=== PATIENT | female | born 1970 | race Caucasian/White ===

== ENCOUNTER 2016-11-10 18:02 | Emergency (ER) | payer OTHER ==
[~2016-11-10] VITALS: Ht 170.2 cm; Wt 77.0 kg
[~2016-11-10 18:02] MED LIST: ALBU1AER9 INH; FURO-85 PO; LORA-741 PO; PROC1TAB5 PO; ZOLP10TA PO
[2016-11-10 18:14] VITALS: TEMP 37.5; Ht 170.2 cm; Wt 77.0 kg
[2016-11-10] MEDS ORDERED: LAMO150T32 PO (19:17)
[2016-11-10] MEDS ORDERED: NRN600 PO (19:17)
[2016-11-10] MEDS ORDERED: ONDANSETRON INJ 2 MG/ML 2 ML VIAL IV STA (20:15)
[2016-11-10] MEDS ORDERED: MoRPHine SULFATE 4 MG/ML 1 ML CARP\\VIAL IV STA (20:15)
--- NOTE | 2016-11-10 20:15 | EMERGENCY ROOM VISIT NOTE ---
History Report prepared by Shyam: Milton Quispe Under the Supervision of: Dr. Dillon Stack M.D. First contact with patient: 20:01 Chief Complaint: FALL Stated Complaint: FELL LAST NIGHT,RT ARM & RT LEG/MID BACK PAIN History of Present Illness The patient is a 46 year old female who presents to the Emergency Room with complaints of an acute fall that occurred two nights ago. The patient slipped on a rug in her apartment. She blacked out after the fall and cannot remember going to bed. The patient now complains of right forearm, upper back, and right hip pain. The patient cannot remember specifically hitting her head but believes that she did because she blacked out. The patient is able to ambulate with difficulty. She is not taking anything for pain. The patient has been incontinent of urine multiple times since the fall, which is new for her. She also has numbness radiating from her right buttocks down her right leg which is new.The patient has a history of herniated discs. She is not on blood thinners. Source of History: patient Onset: two nights ago Position: other (global) Quality: other (fall) Timing: other (acute) Associated Symptoms: + back pain, + numbness, + urinary symptoms Review of Systems See HPI for pertinent positives & negatives. A total of 10 systems reviewed and were otherwise negative. Past Medical & Surgical Medical Problems: (1) ACUTE PANCREATITIS (2) Asthma (3) Bariatric Surgery Status (4) Benign hypertension (5) Bowel obstruction (6) Cholecystectomy (7) Disc Degeneration Nos (8) Hysterectomy (9) Intussusception (10) IRON DEFIC ANEMIA NOS (11) Kidney stone (12) MIGRAINE UNSPECIFIED W/O INTRACT MGRN W/O STATUS MIGRAINOSUS (13) Oophorectomy (14) Poison-Antipsychotic Nec (15) Recurrent mouth ulcers (16) Severe recurrent major depression without psychotic features Old medical records were reviewed. Nurse's notes were reviewed and I agree with. Family History FHx: diabetes FHx: gallbladder disease FHx: heart disease FHx: hypertension FHx: kidney disease/stones FHx: seizures Social History Smoking Status: Never Smoker Alcohol Use: none Drug Use: none Marital Status: Housing Status: lives with significant other Occupation Status: disabled Current/Historical Medications Scheduled Wbfcqqy-Jtagjnfetvadq-Fhtogjys (Excedrin Extra Strength), 3 TABS PO DAILY Brexpiprazole (Rexulti), 2 TABS PO DAILY Furosemide (Lasix), 20 MG PO DAILY Gabapentin (Gabapentin), 600 MG PO TID Lamotrigine (Lamictal), 150 MG PO BID Lorazepam (Ativan), 1 MG PO DAILY Morphine Cont Rel (Ms Contin), 15 MG PO Q12 Zolpidem Tartrate (Ambien), 10 MG PO HS Scheduled PRN Hydrocodone/Acetaminophen 7.5MG/325MG (Gray 7.5MG/325MG), 1 TAB PO QID PRN for Pain Allergies Coded Allergies: Ketorolac Tromethamine (Verified Allergy, Intermediate, pt states it makes her itchy, 04/15/16) Tramadol (Verified Allergy, Mild, HIVES ITCHING, 04/15/16) Valproic Acid (Unverified Allergy, Unknown, hives , 04/15/16) Acetaminophen (Unverified Adverse Reaction, Severe, GI UPSET, 04/15/16) Butalbital (Verified Adverse Reaction, Intermediate, UNSTEADY "DRUNK FEELING", 04/15/16) Diclofenac (Verified Adverse Reaction, Intermediate, RECTAL BLEEDING, 04/15) Venlafaxine (Verified Adverse Reaction, Mild, VOMITING, JITTERS, 04/15/16) Aspartame (Unverified Adverse Reaction, Unknown, N/V, 04/15/16) Physical Exam Vital Signs Date Time Temp Pulse Resp B/P Pulse Ox O2 Delivery O2 Flow Rate FiO2 11/11/16 00:22 76 16 127/63 96 11/10/16 23:29 73 16 122/76 98 Room Air 11/10/16 22:05 73 18 130/69 95 Room Air 11/10/16 20:28 74 20 133/56 95 Room Air 11/10/16 18:14 37.5 112 18 125/79 95 Room Air Physical Exam General: Non ill appearing middle aged female in no acute distress. HEENT: Normal cephalic atraumatic. Pupils are equal round and reactive to light. Extraocular movements are intact. Oropharynx is pink with moist mucous membranes. No swelling of the mouth lips or tongue. Neck: Supple with a midline trachea. No meningeal signs or stiffness, no JVD or bruits. No Stridor. Chest: Clear to auscultation bilaterally. No wheezes or rhonchi. No increased work of breathing. Heart: regular rate and rhythm. Back: Upper lumbar/lower thoracic tenderness, no external signs of trauma. Abdomen: Soft nontender, nondistended without rebound guarding or rigidity. Extremities: Minimal swelling of the right forearm. Lower extremities have symmetrical intact reflexes, normal motor or sensation. Spine/Back. Non tender to palpation. No CVA tenderness Skin: Good turgor without rashes. Neurologic exam: Cranial nerves two through 12 are intact. Motor and sensation are intact and symmetrical throughout. He hasn't a tach sensation light touch in the legs and buttocks. She has brisk reflexes in the Achilles and patellar reflexes bilaterally Medical Decision & Procedures ER Provider Diagnostic Interpretation: Radiology results as stated below per my review and radiologist interpretation: RIGHT FOREARM 2 VIEWS ROUTINE CLINICAL HISTORY: Trauma. Right forearm pain. COMPARISON: Right elbow radiograph April 22, 2013. FINDINGS: No acute fracture of the right radius or ulna is identified. There is no right elbow joint effusion. IMPRESSION: No acute fracture of the right radius or ulna. Electronically signed by: Zane Santamaria M.D. 11/10/2016 9:31 PM Dictated Date/Time: 11/10/2016 9:[address] OF THE ABDOMEN AND PELVIS WITH CONTRAST CLINICAL HISTORY: Fall. COMPARISON STUDY: CT of the abdomen and pelvis April 15, 2016. TECHNIQUE: Following IV administration of 93 mL of Optiray-320, axial images of the abdomen and pelvis were obtained from the lung bases to the proximal femurs. Images were reviewed in the axial, sagittal, and coronal planes. IV contrast was administered without complication. FINDINGS: No hemoperitoneum or pneumoperitoneum is present. Visualized portions of the lower chest demonstrate several healed bilateral lower rib fractures. There are findings consistent with gastric bypass and cholecystectomy. Biliary ductal dilatation is unchanged. There is no evidence of traumatic injury to the liver, spleen, adrenal glands, kidneys or pancreas. A few subcentimeter lesions within the upper pole of the right kidney are too small to characterize but are unchanged and likely reflect cysts. There is no hydronephrosis. The caliber and wall thickness of small and large bowel are normal. There is no free fluid. No acute pelvic or lumbar spine fractures identified. There is apparent slight asymmetric infiltration within the left posterior hemipelvis, including the left sciatic foramen. No adjacent fracture is identified. There is no hematoma. IMPRESSION: 1. No evidence of traumatic injury to the solid abdominal viscera. 2. Slight asymmetric infiltration within the left posterior hemipelvis, including the left sciatic foramen. While nonspecific, this may be posttraumatic. No large hematoma. No adjacent fracture identified. CT OF THE HEAD WITHOUT CONTRAST CLINICAL HISTORY: Trauma. COMPARISON STUDY: Head CT March 10, 2016. CT DOSE: 1127.24 mGy.cm TECHNIQUE: Helical axial images of the head were obtained without IV contrast. Automated exposure control was utilized for the study. FINDINGS: No acute intracranial hemorrhage, midline shift or mass effect is present. Brain volume is normal. Ventricular system is normal. The basilar cisterns are patent. There are no extra-axial collections. Montero-white differentiation is maintained and there is no calvarial fracture. Visualized portions of the sinuses and the mastoid air cells are clear. IMPRESSION: 1. No acute intracranial findings. 2. No calvarial fracture. Electronically signed by: Zane Santamaria M.D. 11/10/2016 10:07 PM Dictated Date/Time: 11/10/2016 10:06 PM Electronically signed by: Zane Santamaria M.D. 11/10/2016 10:19 PM Dictated Date/Time: 11/10/2016 10:[address] OF THE LUMBAR SPINE CLINICAL HISTORY: Fall. TECHNIQUE: Axial images of the lumbar spine were obtained. Sagittal and coronal reconstructions were viewed. COMPARISON STUDY: Lumbar spine radiograph March 10, 2016. FINDINGS: Alignment of the lumbar spine is anatomic. Vertebral body heights are maintained. There is no acute fracture. Paravertebral soft tissues are unremarkable. There is mild disc space narrowing at L5-S1. Central canal and neural foramen are suboptimally assessed by CT. IMPRESSION: No acute lumbar spine fracture or subluxation. Electronically signed by: Zane Santamaria M.D. 11/10/2016 10:22 PM Dictated Date/Time: 11/10/2016 10:19 PM Laboratory Results 11/10/16 20:40 Red Blood Count 4.25, Mean Corpuscular Volume 91.5, Mean Corpuscular Hemoglobin 32.0, Mean Corpuscular Hemoglobin Concent 35.0, Mean Platelet Volume 10.3, Neutrophils (%) (Auto) 66.0, Lymphocytes (%) (Auto) 24.0, Monocytes (%) (Auto) 8.0, Eosinophils (%) (Auto) 1.3, Basophils (%) (Auto) 0.6, Neutrophils # (Auto) 4.43, Lymphocytes # (Auto) 1.61, Monocytes # (Auto) 0.54, Eosinophils # (Auto) 0.09, Basophils # (Auto) 0.04 11/10/16 20:40 Test 11/10/16 20:40 11/10/16 20:46 White Blood Count 6.72 K/uL (4.8-10.8) Red Blood Count 4.25 M/uL (4.2-5.4) Hemoglobin 13.6 g/dL (12.0-16.0) Hematocrit 38.9 % (37-47) Mean Corpuscular Volume 91.5 fL (80-100) Mean Corpuscular Hemoglobin 32.0 pg (25-34) Mean Corpuscular Hemoglobin Concent 35.0 g/dl (32-36) Platelet Count 174 K/uL (130-400) Mean Platelet Volume 10.3 fL (7.4-10.4) Neutrophils (%) (Auto) 66.0 % Lymphocytes (%) (Auto) 24.0 % Monocytes (%) (Auto) 8.0 % Eosinophils (%) (Auto) 1.3 % Basophils (%) (Auto) 0.6 % Neutrophils # (Auto) 4.43 K/uL (1.4-6.5) Lymphocytes # (Auto) 1.61 K/uL (1.2-3.4) Monocytes # (Auto) 0.54 K/uL (0.11-0.59) Eosinophils # (Auto) 0.09 K/uL (0-0.5) Basophils # (Auto) 0.04 K/uL (0-0.2) RDW Standard Deviation 42.7 fL (36.4-46.3) RDW Coefficient of Variation 12.7 % (11.5-14.5) Immature Granulocyte % (Auto) 0.1 % Immature Granulocyte # (Auto) 0.01 K/uL (0.00-0.02) Anion Gap 7.0 mmol/L (3-11) Est Creatinine Clear Calc Drug Dose 120.0 ml/min Estimated GFR () 124.5 Estimated GFR (Non- 107.4 BUN/Creatinine Ratio 11.9 (10-20) Calcium Level 8.9 mg/dl (8.5-10.1) Human Chorionic Gonadotropin, Qual NEG (NEG) Bedside Troponin I 0.000 ng/ml (0-0.045) Laboratory studies as stated above per my review. Medications Administered Medications (Trade) Dose Ordered Sig/Jillian Route Start Time Stop Time Status Last Admin Dose Admin Morphine Sulfate (MoRPHine SULFATE INJ) 4 mg NOW STAT IV 11/10/16 20:15 11/10/16 20:19 DC 11/10/16 21:03 4 MG Ondansetron HCl (Zofran Inj) 4 mg NOW STAT IV 11/10/16 20:15 11/10/16 20:19 DC 11/10/16 21:03 4 MG Hydromorphone HCl (Dilaudid Inj) 1 mg NOW STAT IV 11/10/16 21:44 11/10/16 21:45 DC 11/10/16 22:06 1 MG Hydromorphone HCl (Dilaudid Inj) 1 mg NOW STAT IV 11/11/16 00:07 11/11/16 00:09 DC 11/11/16 00:20 1 MG ECG Indication: other (fall) Rate (beats per minute): 68 Rhythm: normal sinus Findings: no acute ischemic change, no ectopy Comparison ECG Date: no prior available ED Course 2003: Past medical records reviewed. The patient was evaluated in room B7, and a complete history and physical examination were performed. 2015: Zofran 4 mg IV, Morphine Sulfate 4 mg IV. 2144: Dilaudid 1 mg IV. 2352: Updated the patient. 0007: Dilaudid 1 mg IV. 010: Reassessed the patient. Discussed the findings with her. She verbalize understanding and agreement of the treatment plan. The patient is ready for discharge. Medical Decision Differential diagnosis includes trauma, electrolyte or metabolic abnormality, syncope, spinal injury, cauda equina. This patient comes in after suffering a minor fall 2 days ago. She has multiple various complaints. She is pain in her right arm also right buttocks causing numbness down her leg. She may have some urinary problems as well although on exam, she has intact neurologic exam and she nothing to suggest cauda equina syndrome otherwise. IV access established and she was given morphine 4 mg IV and Zofran 4 mg IV. She did receive additional IV Dilaudid twice while she was here and appears very comfortable. CAT scan of her head abdomen and lumbar spine are unremarkable. X-ray of for was unremarkable. she' s had no acute electrode or metabolic abnormalities. she's had nothing that she has acute coronary syndrome or arrhythmia. She feels good and would like to go home. she was able ambulate. she is not driving. She does have chronic pain and is followed by the pain management clinic and will vascular chronic pain medications from them. I encouraged to return if she has increasing pain, worsening of symptoms, increasing numbness or weakness or any new problems concerns. She is happy with plan and discharged to home. Impression Primary Impression: Contusion of hip, right Additional Impressions: Contusion of right forearm Mild closed head injury Scribe Attestation The scribe's documentation has been prepared under my direction and personally reviewed by me in its entirety. I confirm that the note above accurately reflects all work, treatment, procedures, and medical decision making performed by me. Departure Information Dispostion Home / Self-Care Referrals No Doctor, Assigned (PCP) Forms HOME CARE DOCUMENTATION FORM, IMPORTANT VISIT INFORMATION Patient Instructions My [facility] Additional Instructions Rest. Drink plenty of fluids. Follow-up with your pain management clinic this week. Return if: Increasing pain, worsening symptoms, numbness weakness, any new problems or concerns. Problem Qualifiers
[2016-11-10] MEDS ORDERED: ASPI-391 PO (20:26)
[2016-11-10] MEDS ORDERED: OPTIRAY 320 IV PRN (20:30)
[2016-11-10 21:01] LABS: BASO % 0.6 %; BASO ABS # 0.04 K/uL (0-0.2); COMPLETE YES; EOS % 1.3 %; HEMATOCRIT 38.9 % (37-47); IG% 0.1 %; LYMPH ABS # 1.61 K/uL (1.2-3.4); MEAN CELL VOLUME 91.5 fL (80-100); MEAN PLATELET VOLUME 10.3 fL (7.4-10.4); PLATELET COUNT 174 K/uL (130-400); RED BLOOD COUNT 4.25 M/uL (4.2-5.4); WHITE BLOOD COUNT 6.72 K/uL (4.8-10.8)
[2016-11-10 21:17] LABS: BUN/CREATININE RATIO 11.9 (10-20); CALCIUM 8.9 mg/dl (8.5-10.1); CREATININE 0.62 mg/dl (0.60-1.20); POTASSIUM 3.6 mmol/L (3.5-5.1)
[2016-11-10] MEDS ORDERED: MORP15TA19 PO (21:21)
[2016-11-10] MEDS ORDERED: HYDR-3983 PO (21:21)
[2016-11-10] MEDS ORDERED: BREX1TAB4 PO (21:21)
[2016-11-10 21:22] LABS: PREG INTERNAL NEGATIVE QC NEG CLEAR BACKGROUND; PREG INTERNAL POSITIVE QC POS CONTROL LINE
--- NOTE | 2016-11-10 21:32 | DIAGNOSTIC IMAGING REPORT ---
RIGHT FOREARM 2 VIEWS ROUTINE CLINICAL HISTORY: Trauma. Right forearm pain. COMPARISON: Right elbow radiograph April 22, 2013. FINDINGS: No acute fracture of the right radius or ulna is identified. There is no right elbow joint effusion. IMPRESSION: No acute fracture of the right radius or ulna. Electronically signed by: Zane Santamaria M.D. 11/10/2016 9:31 PM Dictated Date/Time: 11/10/2016 9:29 PM
[2016-11-10] MEDS ORDERED: HYDROmorphone INJ 1 MG/ML SYR IV STA (21:44)
--- NOTE | 2016-11-10 22:09 | DIAGNOSTIC IMAGING REPORT ---
CT OF THE HEAD WITHOUT CONTRAST CLINICAL HISTORY: Trauma. COMPARISON STUDY: Head CT March 10, 2016. CT DOSE: 1127.24 mGy.cm TECHNIQUE: Helical axial images of the head were obtained without IV contrast. Automated exposure control was utilized for the study. FINDINGS: No acute intracranial hemorrhage, midline shift or mass effect is present. Brain volume is normal. Ventricular system is normal. The basilar cisterns are patent. There are no extra-axial collections. Montero-white differentiation is maintained and there is no calvarial fracture. Visualized portions of the sinuses and the mastoid air cells are clear. IMPRESSION: 1. No acute intracranial findings. 2. No calvarial fracture. Electronically signed by: Zane Santamaria M.D. 11/10/2016 10:07 PM Dictated Date/Time: 11/10/2016 10:06 PM
--- NOTE | 2016-11-10 22:20 | DIAGNOSTIC IMAGING REPORT ---
CT OF THE ABDOMEN AND PELVIS WITH CONTRAST CLINICAL HISTORY: Fall. COMPARISON STUDY: CT of the abdomen and pelvis April 15, 2016. TECHNIQUE: Following IV administration of 93 mL of Optiray-320, axial images of the abdomen and pelvis were obtained from the lung bases to the proximal femurs. Images were reviewed in the axial, sagittal, and coronal planes. IV contrast was administered without complication. FINDINGS: No hemoperitoneum or pneumoperitoneum is present. Visualized portions of the lower chest demonstrate several healed bilateral lower rib fractures. There are findings consistent with gastric bypass and cholecystectomy. Biliary ductal dilatation is unchanged. There is no evidence of traumatic injury to the liver, spleen, adrenal glands, kidneys or pancreas. A few subcentimeter lesions within the upper pole of the right kidney are too small to characterize but are unchanged and likely reflect cysts. There is no hydronephrosis. The caliber and wall thickness of small and large bowel are normal. There is no free fluid. No acute pelvic or lumbar spine fractures identified. There is apparent slight asymmetric infiltration within the left posterior hemipelvis, including the left sciatic foramen. No adjacent fracture is identified. There is no hematoma. IMPRESSION: 1. No evidence of traumatic injury to the solid abdominal viscera. 2. Slight asymmetric infiltration within the left posterior hemipelvis, including the left sciatic foramen. While nonspecific, this may be posttraumatic. No large hematoma. No adjacent fracture identified. Electronically signed by: Zane Santamaria M.D. 11/10/2016 10:19 PM Dictated Date/Time: 11/10/2016 10:08 PM
--- NOTE | 2016-11-10 22:23 | DIAGNOSTIC IMAGING REPORT ---
CT OF THE LUMBAR SPINE CLINICAL HISTORY: Fall. TECHNIQUE: Axial images of the lumbar spine were obtained. Sagittal and coronal reconstructions were viewed. COMPARISON STUDY: Lumbar spine radiograph March 10, 2016. FINDINGS: Alignment of the lumbar spine is anatomic. Vertebral body heights are maintained. There is no acute fracture. Paravertebral soft tissues are unremarkable. There is mild disc space narrowing at L5-S1. Central canal and neural foramen are suboptimally assessed by CT. IMPRESSION: No acute lumbar spine fracture or subluxation. Electronically signed by: Zane Santamaria M.D. 11/10/2016 10:22 PM Dictated Date/Time: 11/10/2016 10:19 PM
[2016-11-11] MEDS ORDERED: HYDROmorphone INJ 1 MG/ML SYR IV STA (00:07)
[2016-11-11 00:22] VITALS: BP 127/63; PULSE 76; O2SAT 96
== END 2016-11-11 00:23 | disposition home or self-care (01) ==
LOC: C.EDB 18:02
DX: S70.01XA Contusion of right hip, initial encounter (principal); S50.11XA Contusion of right forearm, initial encounter; S09.90XA Unspecified injury of head, initial encounter; W01.0XXA Fall on same level from slipping, tripping and stumbling without subsequent striking against object, initial encounter; Y92.039 Unspecified place in apartment as the place of occurrence of the external cause; K85.90 Acute pancreatitis without necrosis or infection, unspecified; J45.909 Unspecified asthma, uncomplicated; I10 Essential (primary) hypertension; D50.9 Iron deficiency anemia, unspecified; Z87.442 Personal history of urinary calculi; G43.909 Migraine, unspecified, not intractable, without status migrainosus; Z83.3 Family history of diabetes mellitus; Z83.79 Family history of other diseases of the digestive system; Z82.49 Family history of ischemic heart disease and other diseases of the circulatory system; Z84.1 Family history of disorders of kidney and ureter; Z79.899 Other long term (current) drug therapy

== ENCOUNTER 2017-10-03 17:57 | Emergency (ER) | payer OTHER ==
[~2017-10-03] VITALS: Ht 167.6 cm; Wt 72.5 kg
[~2017-10-03 17:57] MED LIST changes: -ALBU1AER9 INH; +ASPI-391 PO; +BREX1TAB4 PO; +HYDR-3983 PO; +LAMO150T PO; +MORP15TA19 PO; -PROC1TAB5 PO
[2017-10-03 17:59] VITALS: TEMP 36.4; Ht 167.6 cm; Wt 72.5 kg
[2017-10-03 18:30] LABS: BASO % 0.4 %; BASO ABS # 0.03 K/uL (0-0.2); EOS % 0.8 %; EOS ABS # 0.06 K/uL (0-0.5); HEMATOCRIT 47.8 % (37-47); IG# 0.01 K/uL (0.00-0.02); LYMPH % 25.3 %; LYMPH ABS # 1.83 K/uL (1.2-3.4); MEAN CELL VOLUME 92.8 fL (80-100); MEAN CORPUSCULAR HGB CONC 35.6 g/dl (32-36); MEAN PLATELET VOLUME 11.1 fL (7.4-10.4); MONO % 7.6 %; MONO ABS # 0.55 K/uL (0.11-0.59); NEUT % 65.8 %; NEUT ABS # 4.75 K/uL (1.4-6.5); PLATELET COUNT 204 K/uL (130-400); RED CELL DISTRIBUTION WIDTH CV 13.2 % (11.5-14.5); RED CELL DISTRIBUTION WIDTH SD 44.4 fL (36.4-46.3); WHITE BLOOD COUNT 7.23 K/uL (4.8-10.8)
--- NOTE | 2017-10-03 18:42 | EMERGENCY ROOM VISIT NOTE ---
History First contact with patient: 18:04 Chief Complaint: ABDOMINAL PAIN Stated Complaint: PANCREATITIS SYMPTOMS History of Present Illness The patient is a 47 year old female who presents to the Emergency Room with complaints of abdominal pain and diarrhea. The patient reports that she started a new psych medication, Viibryd, approximately 3 weeks ago. She started this for her depression because she previously had stopped all of her psychiatric medications. She states that she has had diarrhea since starting the medication. She has also developed abdominal pain over the past 2-3 weeks. She reports the pain started in her lower abdomen and moved into her upper abdomen. She states the pain initially felt like period cramps, but she is now concerned she could have pancreatitis because the pain is in her upper abdomen and radiating into the back. She does report a history of pancreatitis. She has had decreased appetite and has lost 5 pounds recently. She called her psychiatrist, who told her to go to her family doctor or the ER to be evaluated. She rates her overall discomfort 8/10. Her diarrhea has been resolving and she had a normal formed bowel movement today. She denies any nausea or vomiting. She reports history of pancreatitis, hysterectomy, cholecystectomy, gastric bypass, polycythemia vera and iron deficiency. Review of Systems A complete 10 point review of systems was reviewed with the patient with pertinent positives and negatives as per history of present illness. All else were negative. Past Medical/Surgical History Medical Problems: (1) ACUTE PANCREATITIS (2) Asthma (3) Bariatric Surgery Status (4) Benign hypertension (5) Bowel obstruction (6) Cholecystectomy (7) Disc Degeneration Nos (8) Hysterectomy (9) Intussusception (10) IRON DEFIC ANEMIA NOS (11) Kidney stone (12) MIGRAINE UNSPECIFIED W/O INTRACT MGRN W/O STATUS MIGRAINOSUS (13) Oophorectomy (14) Poison-Antipsychotic Nec (15) Recurrent mouth ulcers (16) Severe recurrent major depression without psychotic features Family History FHx: diabetes FHx: gallbladder disease FHx: heart disease FHx: hypertension FHx: kidney disease/stones FHx: seizures Social History Smoking Status: Never Smoker Alcohol Use: none Drug Use: none Marital Status: Housing Status: lives with significant other Occupation Status: disabled Current/Historical Medications Scheduled Gabapentin (Gabapentin), 600 MG PO TID Lorazepam (Ativan), 1 MG PO DAILY Topiramate (Topamax), 50 MG PO BID Zolpidem Tartrate (Ambien), 10 MG PO HS Physical Exam Vital Signs Date Time Temp Pulse Resp B/P (MAP) Pulse Ox O2 Delivery O2 Flow Rate FiO2 10/03/17 19:56 76 18 137/70 97 10/03/17 17:59 36.4 111 18 161/95 98 Room Air Physical Exam VITALS: Vitals are noted on the nurse's note and reviewed by myself. Vital signs stable. GENERAL: This is a 47-year-old female, in no acute distress, nondiaphoretic, well-developed well-nourished. SKIN: The skin was without rashes. EARS: External auditory canals clear, tympanic membranes pearly plata without erythema or effusion bilaterally. EYES: Pupils equal round and reactive to light and accommodation. MOUTH: Mucous membranes moist. Tonsils are not enlarged. Pharynx without erythema or exudate. NECK: Supple without nuchal rigidity. No lymphadenopathy. HEART: Regular rate and rhythm without murmurs gallops or rubs. LUNGS: Clear to auscultation bilaterally without wheezes, rales or rhonchi. No retractions or accessory muscle use. ABDOMEN: Positive bowel sounds x 4. Soft, tenderness in the right upper quadrant with deep palpation. No guarding or rebound tenderness. NEURO: Patient was alert and oriented to person place and time. Medical Decision & Procedures ER Provider Diagnostic Interpretation: ABDOMEN 2VIEW W/PA CHEST RTN CLINICAL HISTORY: upper abdominal pain pain COMPARISON STUDY: 05/21/2015 FINDINGS: Lungs are clear. Diaphragms smooth. Bowel pattern is considered nonobstructive. There is perhaps a minimal nonobstructive small bowel ileus. There are no secondary signs of free air. Postoperative changes seen in the left upper quadrant. IMPRESSION: 1. Negative chest. 2. Minimal nonobstructive ileus. Laboratory Results 10/03/17 18:20 Red Blood Count 5.15, Mean Corpuscular Volume 92.8, Mean Corpuscular Hemoglobin 33.0, Mean Corpuscular Hemoglobin Concent 35.6, Mean Platelet Volume 11.1, Neutrophils (%) (Auto) 65.8, Lymphocytes (%) (Auto) 25.3, Monocytes (%) (Auto) 7.6, Eosinophils (%) (Auto) 0.8, Basophils (%) (Auto) 0.4, Neutrophils # (Auto) 4.75, Lymphocytes # (Auto) 1.83, Monocytes # (Auto) 0.55, Eosinophils # (Auto) 0.06, Basophils # (Auto) 0.03 10/03/17 18:20 Test 10/03/17 18:20 10/03/17 19:00 White Blood Count 7.23 K/uL (4.8-10.8) Red Blood Count 5.15 M/uL (4.2-5.4) Hemoglobin 17.0 g/dL (12.0-16.0) Hematocrit 47.8 % (37-47) Mean Corpuscular Volume 92.8 fL (80-100) Mean Corpuscular Hemoglobin 33.0 pg (25-34) Mean Corpuscular Hemoglobin Concent 35.6 g/dl (32-36) Platelet Count 204 K/uL (130-400) Mean Platelet Volume 11.1 fL (7.4-10.4) Neutrophils (%) (Auto) 65.8 % Lymphocytes (%) (Auto) 25.3 % Monocytes (%) (Auto) 7.6 % Eosinophils (%) (Auto) 0.8 % Basophils (%) (Auto) 0.4 % Neutrophils # (Auto) 4.75 K/uL (1.4-6.5) Lymphocytes # (Auto) 1.83 K/uL (1.2-3.4) Monocytes # (Auto) 0.55 K/uL (0.11-0.59) Eosinophils # (Auto) 0.06 K/uL (0-0.5) Basophils # (Auto) 0.03 K/uL (0-0.2) RDW Standard Deviation 44.4 fL (36.4-46.3) RDW Coefficient of Variation 13.2 % (11.5-14.5) Immature Granulocyte % (Auto) 0.1 % Immature Granulocyte # (Auto) 0.01 K/uL (0.00-0.02) Anion Gap 4.0 mmol/L (3-11) Est Creatinine Clear Calc Drug Dose 76.2 ml/min Estimated GFR () 85.3 Estimated GFR (Non- 73.6 BUN/Creatinine Ratio 20.5 (10-20) Calcium Level 9.4 mg/dl (8.5-10.1) Total Bilirubin 0.4 mg/dl (0.2-1) Aspartate Amino Transf (AST/SGOT) 15 U/L (15-37) Alanine Aminotransferase (ALT/SGPT) 22 U/L (12-78) Alkaline Phosphatase 184 U/L (45-117) Total Protein 7.9 gm/dl (6.4-8.2) Albumin 4.1 gm/dl (3.4-5.0) Globulin 3.8 gm/dl (2.5-4.0) Albumin/Globulin Ratio 1.1 (0.9-2) Lipase 158 U/L (73-393) Urine Color DK YELLOW Urine Appearance CLEAR (CLEAR) Urine pH 5.5 (4.5-7.5) Urine Specific [employer] 1.029 (1.000-1.030) Urine Protein NEG (NEG) Urine Glucose (UA) NEG (NEG) Urine Ketones TRACE (NEG) Urine Occult Blood NEG (NEG) Urine Nitrite NEG (NEG) Urine Bilirubin NEG (NEG) Urine Urobilinogen NEG (NEG) Urine Leukocyte Esterase TRACE (NEG) Urine WBC (Auto) 5-10 /hpf (0-5) Urine RBC (Auto) 10-30 /hpf (0-4) Urine Hyaline Casts (Auto) 1-5 /lpf (0-5) Urine Epithelial Cells (Auto) >30 /lpf (0-5) Urine Bacteria (Auto) NEG (NEG) Medications Administered Medications (Trade) Dose Ordered Sig/Jillian Route Start Time Stop Time Status Last Admin Dose Admin Ondansetron HCl (Zofran Inj) 4 mg NOW STAT IV 10/03/17 19:14 10/03/17 19:16 DC 10/03/17 19:22 4 MG Medical Decision Differential diagnosis includes pancreatitis, gastroenteritis, gastritis, adverse reaction to medication, bowel obstruction, among others. The patient is a 47-year-old female who presents today complaining of abdominal discomfort and diarrhea. Patient actually reports her diarrhea has been resolving. She started a new medication which coincided with the onset of these symptoms. Labs revealed no leukocytosis, anemia or concerning electrolyte abnormalities. Lipase was not elevated. No significant elevation of LFTs. Urinalysis was not suggestive of infection. Abdominal series showed a minimal nonobstructive ileus. Patient was instructed on clear liquid diet and will follow-up with her psychiatrist regarding the new medication. Patient has minimal tenderness on examination. She is afebrile. Based on the patient's presentation and work up, I feel the patient is stable for outpatient treatment. The patient was educated to return to the emergency department for any worsening of their current condition or new/concerning symptoms. She will follow up with her PCP and psychiatrist. Medication Reconcilliation Current Medication List: was personally reviewed by me Blood Pressure Screening Patient's blood pressure: Elevated blood pressure Blood pressure disposition: Elevated BP felt to be situational Impression Primary Impression: Abdominal pain Departure Information Dispostion Home / Self-Care Condition GOOD Referrals No Doctor, Assigned (PCP) Patient Instructions My [facility] [employer] Additional Instructions Nothing by mouth to eat for 24 hours, then advance to a clear liquid diet as tolerated. Follow up with your primary care provider and pharmacovigilance scientist for recheck and further evaluation. Return to the ER with worsening pain, vomiting, fevers, or any other new/ concerning symptoms. Problem Qualifiers Primary Impression: Abdominal pain Abdominal location: upper abdomen, unspecified Qualified Codes: R10.10 - Upper abdominal pain, unspecified
[2017-10-03 18:46] LABS: ALBUMIN 4.1 gm/dl (3.4-5.0); CALCIUM 9.4 mg/dl (8.5-10.1); CREATININE 0.92 mg/dl (0.60-1.20); POTASSIUM 3.8 mmol/L (3.5-5.1)
[2017-10-03 18:49] LABS: TOTAL PROTEIN 7.9 gm/dl (6.4-8.2)
[2017-10-03] MEDS ORDERED: ATV/1 PO (18:52)
[2017-10-03] MEDS ORDERED: TOPI50TA16 PO (18:53)
--- NOTE | 2017-10-03 19:00 | DIAGNOSTIC IMAGING REPORT ---
ABDOMEN 2VIEW W/PA CHEST RTN CLINICAL HISTORY: upper abdominal pain pain COMPARISON STUDY: 05/21/2015 FINDINGS: Lungs are clear. Diaphragms smooth. Bowel pattern is considered nonobstructive. There is perhaps a minimal nonobstructive small bowel ileus. There are no secondary signs of free air. Postoperative changes seen in the left upper quadrant. IMPRESSION: 1. Negative chest. 2. Minimal nonobstructive ileus. The above report was generated using voice recognition software. It may contain grammatical, syntax or spelling errors. Electronically signed by: Alek Pichardo M.D. 10/03/2017 6:59 PM Dictated Date/Time: 10/03/2017 6:58 PM
[2017-10-03] MEDS ORDERED: ONDANSETRON INJ 2 MG/ML 2 ML VIAL IV STA (19:14)
[2017-10-03] MEDS ORDERED: NRN600 PO (19:17)
[2017-10-03 19:56] VITALS: BP 137/70; PULSE 76; O2SAT 97
--- NOTE | 2017-10-03 20:00 | EMERGENCY ROOM VISIT NOTE ---
ED Visit Note First contact with patient: 18:04 The patient was seen and examined with Merline Ritchie PA-C. I agree with the history, physical and findings. Please see the note for disposition and details.
[2017-10-04] MEDS ORDERED: DICY10CA55 PO (23:08)
== END 2017-10-03 19:59 | disposition home or self-care (01) ==
LOC: C.EDB 17:59
DX: R10.9 Unspecified abdominal pain (principal); Z98.84 Bariatric surgery status; Z87.442 Personal history of urinary calculi; F32.9 Major depressive disorder, single episode, unspecified; Z79.899 Other long term (current) drug therapy

== ENCOUNTER 2017-10-04 19:03 | Emergency (ER) | payer OTHER ==
[~2017-10-04] VITALS: Ht 167.6 cm; Wt 72.4 kg
[~2017-10-04 19:03] MED LIST changes: -ASPI-391 PO; +ATV/1 PO; -BREX1TAB4 PO; -FURO-85 PO; -HYDR-3983 PO; -LAMO150T PO; -LORA-741 PO; -MORP15TA19 PO; +NRN600 PO; +TOPI50TA16 PO
[2017-10-04 19:13] VITALS: TEMP 36.6; Ht 167.6 cm; Wt 72.4 kg
--- NOTE | 2017-10-04 21:05 | EMERGENCY ROOM VISIT NOTE ---
History Report prepared by Shyam: Olu Stock Under the Supervision of: Dr. Andreas Victoria M.D. First contact with patient: 20:33 Chief Complaint: OTHER COMPLAINT Stated Complaint: CT SCAN FROM DOCTOR REQUESTED, PANCRETITIS, BOWEL? History of Present Illness The patient is a 47 year old white female with a past medical history of a hysterectomy, gastric bypass, pancreatitis, kidney stone, low iron, and HTN who presents to the ED with a cc of intermittent abdominal pain beginning a few days ago. Positive nausea. Negative vomiting, urinary symptoms. She was seen here yesterday for the same pain. The patient states that the pain is the same in intensity, but just won't go away. She had an x-ray and blood work here yesterday. The patient states that she has not taken any medications for the pain. She says that she was told by her primary care doctor to come here for a CT scan. Source of History: patient Onset: A few days ago Position: abdomen Timing: intermittent Associated Symptoms: + nausea, No vomiting, No urinary symptoms Review of Systems See HPI for pertinent positives and negatives. A total of ten systems were reviewed and were otherwise negative. Past Medical & Surgical Medical Problems: (1) ACUTE PANCREATITIS (2) Asthma (3) Bariatric Surgery Status (4) Benign hypertension (5) Bowel obstruction (6) Cholecystectomy (7) Disc Degeneration Nos (8) Hysterectomy (9) Intussusception (10) IRON DEFIC ANEMIA NOS (11) Kidney stone (12) MIGRAINE UNSPECIFIED W/O INTRACT MGRN W/O STATUS MIGRAINOSUS (13) Oophorectomy (14) Poison-Antipsychotic Nec (15) Recurrent mouth ulcers (16) Severe recurrent major depression without psychotic features Family History FHx: diabetes FHx: gallbladder disease FHx: heart disease FHx: hypertension FHx: kidney disease/stones FHx: seizures Social History Smoking Status: Current Every Day Smoker Alcohol Use: none Drug Use: none Marital Status: Housing Status: lives with significant other Occupation Status: disabled Current/Historical Medications Scheduled Dicyclomine Hcl (Bentyl), 1 CAP PO TID Gabapentin (Gabapentin), 600 MG PO TID Lorazepam (Ativan), 1 MG PO DAILY Topiramate (Topamax), 50 MG PO BID Zolpidem Tartrate (Ambien), 10 MG PO HS Allergies Coded Allergies: Ketorolac Tromethamine (Verified Allergy, Intermediate, pt states it makes her itchy, 10/04/17) Tramadol (Verified Allergy, Mild, HIVES ITCHING, 10/04/17) Valproic Acid (Unverified Allergy, Unknown, hives , 10/04/17) Acetaminophen (Unverified Adverse Reaction, Severe, GI UPSET, 10/04/17) Butalbital (Verified Adverse Reaction, Intermediate, UNSTEADY "DRUNK FEELING", 10/04/17) Diclofenac (Verified Adverse Reaction, Intermediate, RECTAL BLEEDING, 10/04) Venlafaxine (Verified Adverse Reaction, Mild, VOMITING, JITTERS, 10/04/17) Aspartame (Unverified Adverse Reaction, Unknown, N/V, 10/04/17) Uncoded Allergies: VIIBYRD (Allergy, Severe, UNKNOWN, 10/03/17) Physical Exam Vital Signs Date Time Temp Pulse Resp B/P (MAP) Pulse Ox O2 Delivery O2 Flow Rate FiO2 10/04/17 23:49 161/91 10/04/17 22:05 72 20 140/76 96 Room Air 10/04/17 19:13 36.6 95 16 133/97 98 Room Air Physical Exam GENERAL: Awake, alert, well-appearing, NAD HENT: Normocephalic, atraumatic. EYES: Normal conjunctiva. Sclera non-icteric. NECK: Supple. No nuchal rigidity. FROM. Scar on the left lateral neck. RESPIRATORY: CTAB, no rhonchi, wheezing, crackles CARDIAC: RRR, no MRG ABDOMEN: Soft, NTND, BS+ MSK: No chest wall TTP, no LE edema NEURO: GCS 15, CN 2-12 intact, moves all 4s on command SKIN: No rash or jaundice noted. Medical Decision & Procedures ER Provider Diagnostic Interpretation: CT: Radiology results as stated below per my review and radiologist interpretation CT SCAN OF THE ABDOMEN AND PELVIS WITH IV CONTRAST CLINICAL HISTORY: Lower abdominal pain. COMPARISON STUDY: Abdominal CT dated 11/10/16. TECHNIQUE: Following the IV administration of 93 cc of Optiray 320, CT scan of the abdomen and pelvis is performed from the lung bases to the proximal femora. Images are reviewed in the axial, sagittal, and coronal planes. IV contrast was administered without complication. A dose lowering technique was utilized adhering to the principles of ALARA. CT DOSE: 316.38 mGy.cm FINDINGS: Lung bases: The heart is normal in size and without pericardial effusion. The lung bases are clear. Liver: The contrast-enhanced liver is normal in size, contour, and attenuation. There is minimal central intrahepatic biliary ductal dilatation. The hepatic veins and portal veins are patent. Gallbladder: Surgically absent noting clips in the gallbladder fossa. Spleen: Normal in size and attenuation. Pancreas: Unremarkable. Adrenal glands: Unremarkable. Kidneys: The contrast enhanced kidneys are normal in size and without hydronephrosis. The kidneys enhance symmetrically. Scattered subcentimeter cortical hypodensities likely represent cysts but are too small for definitive characterization. Abdominal vasculature: The abdominal aorta is normal in course and caliber noting moderate and age advanced atherosclerotic calcification. Stomach and bowel: Postoperative changes are consistent with a history of Collin-en-Y gastric bypass surgery. No bowel obstruction is seen. The appendix is well-visualized and normal. Peritoneum: There is no intraperitoneal free air or abdominal ascites. There is a small fat-containing umbilical hernia. A naval piercing is noted. Lymphadenopathy: None. Pelvic viscera: The bladder is normal as visualized. The uterus is surgically absent. No adnexal lesion is seen. Skeletal structures: The skeletal structures are osteopenic. No lytic or blastic lesions are seen. IMPRESSION: 1. There are no acute infectious or inflammatory findings in the abdomen or pelvis. 2. Postoperative changes are consistent with a history of Collin-en-Y gastric bypass surgery. No bowel obstruction is seen. Electronically signed by: Remington Victoria M.D. 10/04/2017 10:32 PM Dictated Date/Time: 10/04/2017 10:28 PM Laboratory Results 10/04/17 21:30 Red Blood Count 5.05, Mean Corpuscular Volume 92.7, Mean Corpuscular Hemoglobin 32.5, Mean Corpuscular Hemoglobin Concent 35.0, Mean Platelet Volume 10.9, Neutrophils (%) (Auto) 56.2, Lymphocytes (%) (Auto) 34.3, Monocytes (%) (Auto) 8.1, Eosinophils (%) (Auto) 0.5, Basophils (%) (Auto) 0.7, Neutrophils # (Auto) 3.21, Lymphocytes # (Auto) 1.96, Monocytes # (Auto) 0.46, Eosinophils # (Auto) 0.03, Basophils # (Auto) 0.04 10/04/17 21:30 Test 10/04/17 21:20 10/04/17 21:30 Urine Color YELLOW Urine Appearance CLEAR (CLEAR) Urine pH 6.0 (4.5-7.5) Urine Specific [place] 1.016 (1.000-1.030) Urine Protein NEG (NEG) Urine Glucose (UA) NEG (NEG) Urine Ketones TRACE (NEG) Urine Occult Blood NEG (NEG) Urine Nitrite NEG (NEG) Urine Bilirubin NEG (NEG) Urine Urobilinogen NEG (NEG) Urine Leukocyte Esterase TRACE (NEG) Urine WBC (Auto) 1-5 /hpf (0-5) Urine RBC (Auto) 0-4 /hpf (0-4) Urine Hyaline Casts (Auto) 1-5 /lpf (0-5) Urine Epithelial Cells (Auto) 10-20 /lpf (0-5) Urine Bacteria (Auto) NEG (NEG) White Blood Count 5.71 K/uL (4.8-10.8) Red Blood Count 5.05 M/uL (4.2-5.4) Hemoglobin 16.4 g/dL (12.0-16.0) Hematocrit 46.8 % (37-47) Mean Corpuscular Volume 92.7 fL (80-100) Mean Corpuscular Hemoglobin 32.5 pg (25-34) Mean Corpuscular Hemoglobin Concent 35.0 g/dl (32-36) Platelet Count 190 K/uL (130-400) Mean Platelet Volume 10.9 fL (7.4-10.4) Neutrophils (%) (Auto) 56.2 % Lymphocytes (%) (Auto) 34.3 % Monocytes (%) (Auto) 8.1 % Eosinophils (%) (Auto) 0.5 % Basophils (%) (Auto) 0.7 % Neutrophils # (Auto) 3.21 K/uL (1.4-6.5) Lymphocytes # (Auto) 1.96 K/uL (1.2-3.4) Monocytes # (Auto) 0.46 K/uL (0.11-0.59) Eosinophils # (Auto) 0.03 K/uL (0-0.5) Basophils # (Auto) 0.04 K/uL (0-0.2) RDW Standard Deviation 44.4 fL (36.4-46.3) RDW Coefficient of Variation 13.1 % (11.5-14.5) Immature Granulocyte % (Auto) 0.2 % Immature Granulocyte # (Auto) 0.01 K/uL (0.00-0.02) Anion Gap 8.0 mmol/L (3-11) Est Creatinine Clear Calc Drug Dose 89.8 ml/min Estimated GFR () 104.2 Estimated GFR (Non- 89.9 BUN/Creatinine Ratio 19.1 (10-20) Calcium Level 9.7 mg/dl (8.5-10.1) Total Bilirubin 0.4 mg/dl (0.2-1) Direct Bilirubin < 0.1 mg/dl (0-0.2) Aspartate Amino Transf (AST/SGOT) 15 U/L (15-37) Alanine Aminotransferase (ALT/SGPT) 20 U/L (12-78) Alkaline Phosphatase 160 U/L (45-117) Total Protein 7.5 gm/dl (6.4-8.2) Albumin 4.0 gm/dl (3.4-5.0) Lipase 160 U/L (73-393) Laboratory results reviewed by me ED Course 2100: The patient was evaluated in room C2B. A complete history and physical exam was performed. 2251: I reevaluated the patient and she is resting comfortably. Discussed results and discharge instructions: she verbalized understanding and agreement. The patient is ready for discharge. Medical Decision The patient is a 47 year old white female with a past medical history of a hysterectomy, gastric bypass, pancreatitis, kidney stone, low iron, and HTN who presents to the ED with a cc of intermittent abdominal pain beginning a few days ago. Positive nausea. Negative vomiting, urinary symptoms. Differential diagnosis: Etiologies such as appendicitis, diverticulitis, PUD, biliary pathology, UTI, pancreatitis, obstruction, mesenteric ischemia, aortic pathology, infections, inflammatory bowel disease, renal colic, as well as others were entertained. Patient was seen and evaluated the bedside. Patient is a prior history of Collin- en-Y gastric bypass. The patient was complaining of some abdominal pain. Patient was seen here yesterday and referred to her. Primary care physician. Her PCP then referred her here for a CT scan. On exam the patient was fairly distractible and the patient had no abdominal tenderness to palpation. The patient had a soft abdomen and the patient did not have a surgical abdomen. No peritoneal or localized tenderness to palpation. Patient did have blood work completed along with a CT of the abdomen pelvis. Patient also had a urinalysis performed. Urinalysis does not appear to be infected. The patient had a normal white blood cell count. Patient had fairly normal LFTs. Patient did have mild elevation in alkaline phosphatase. This is not diagnostic. When I did discuss the patient's findings with the patient the patient became tearful and stated that she was in severe pain. The patient has had some issues with pain medications in the past as documented in our ED treatment plan. No narcotics were given. The patient was offered a prescription for Bentyl which she accepted. The patient was given some ODT Zofran. I did discuss the patient with the community case manager who then talked with her to help arrange a follow- up appointment with her gastric surgeon. Patient was deemed suitable for outpatient follow-up and treatment at this time.Patient was given strict follow- up, discharge, and return precautions. All questions were answered. Patient was deemed suitable for outpatient follow-up at this time. Patient agreed with the plan of care and was safely discharged home. The chart was completed utilizing [employer] Speech voice recognition software. Grammatical errors, random word insertions, pronoun errors, and incomplete sentences are an occasional consequence of this system due to software limitations, ambient noise, and hardware issues. Any formal questions or concerns about the content, text, or information contained within the body of this dictation should be directly addressed to the physician for clarification. Medication Reconcilliation Current Medication List: was personally reviewed by me Blood Pressure Screening Patient's blood pressure: Elevated blood pressure Blood pressure disposition: Elevated BP felt to be situational Impression Primary Impression: Abdominal pain Scribe Attestation The scribe's documentation has been prepared under my direction and personally reviewed by me in its entirety. I confirm that the note above accurately reflects all work, treatment, procedures, and medical decision making performed by me. Departure Information Dispostion Home / Self-Care Prescriptions Dicyclomine Hcl (BENTYL) 10 Mg Cap 1 CAP PO TID for 30 Days, #90 CAP 1 Refill Prov: Andreas Victoria M.D. 10/04/17 Referrals No Doctor, Assigned (PCP) Patient Instructions Abdominal Pain - [facility], My [facility] Additional Instructions Please return to the emergency department if you have worsening or recurrent symptoms not amenable to at-home treatment. Please call for a follow-up appointment with her primary care physician. Please take your medications as prescribed. If you have other concerns and/or complaints please feel free to also call your primary care physician's office or return the ED for further evaluation, management, and treatment. Please follow-up with your specialist as needed. You may take 600 mg Ibuprofen every 6 hours as needed for pain with food for no more than 2 consecutive days. You may take tylenol 1000 mg every 6 hours as needed for pain. You may take motrin and tylenol separately or at the same time. Take your medications as prescribed. If taking an antibiotic consider taking a probiotic and/or eating yogurt, but at the least, please take with food as it can cause upset stomach. If culture results are not available at discharge, if they are positive for concern of infection, you will be informed of the results as soon as they are available. If you were seen between 11pm and 7AM all radiology reads will be re-read by our in house staff. If any major discrepancies are discovered, you will be notified. You have been examined and treated today on an emergency basis only. This is not a substitute for, or an effort to provide, complete comprehensive medical care. It is impossible to recognize and treat all injuries or illnesses in a single emergency department visit. It is therefore important that you follow up closely with [facility], your PCP, and/or your specialist(s). Call as soon as possible for an appointment. Thank you for your time and consideration. I look forward to speaking with you again soon. Please don't hesitate to call us if you have any questions. Problem Qualifiers Primary Impression: Abdominal pain Abdominal location: generalized Qualified Codes: R10.84 - Generalized abdominal pain
[2017-10-04] MEDS ORDERED: OPTIRAY 320 IV PRN (21:15)
[2017-10-04 21:50] LABS: BASO % 0.7 %; BASO ABS # 0.04 K/uL (0-0.2); EOS % 0.5 %; EOS ABS # 0.03 K/uL (0-0.5); HEMATOCRIT 46.8 % (37-47); HEMOGLOBIN 16.4 g/dL (12.0-16.0); IG# 0.01 K/uL (0.00-0.02); LYMPH % 34.3 %; LYMPH ABS # 1.96 K/uL (1.2-3.4); MEAN CELL VOLUME 92.7 fL (80-100); MEAN CORPUSCULAR HEMOGLOBIN 32.5 pg (25-34); MEAN PLATELET VOLUME 10.9 fL (7.4-10.4); MONO % 8.1 %; MONO ABS # 0.46 K/uL (0.11-0.59); NEUT % 56.2 %; NEUT ABS # 3.21 K/uL (1.4-6.5); PLATELET COUNT 190 K/uL (130-400); RED CELL DISTRIBUTION WIDTH CV 13.1 % (11.5-14.5); RED CELL DISTRIBUTION WIDTH SD 44.4 fL (36.4-46.3); WHITE BLOOD COUNT 5.71 K/uL (4.8-10.8)
[2017-10-04 22:05] VITALS: PULSE 72; O2SAT 96
[2017-10-04 22:08] LABS: ALT/SGPT 20 U/L (12-78); AST/SGOT 15 U/L (15-37); BLOOD UREA NITROGEN 15 mg/dl (7-18); CALCIUM 9.7 mg/dl (8.5-10.1); CARBON DIOXIDE 27 mmol/L (21-32); CREATININE 0.78 mg/dl (0.60-1.20); GLUCOSE 105 mg/dl (70-99); LIPASE 160 U/L (73-393); POTASSIUM 3.7 mmol/L (3.5-5.1); SODIUM 138 mmol/L (136-145)
[2017-10-04 22:10] LABS: ALKALINE PHOSPHATASE 160 U/L (45-117); TOTAL PROTEIN 7.5 gm/dl (6.4-8.2)
--- NOTE | 2017-10-04 22:34 | DIAGNOSTIC IMAGING REPORT ---
CT SCAN OF THE ABDOMEN AND PELVIS WITH IV CONTRAST CLINICAL HISTORY: Lower abdominal pain. COMPARISON STUDY: Abdominal CT dated 11/10/16. TECHNIQUE: Following the IV administration of 93 cc of Optiray 320, CT scan of the abdomen and pelvis is performed from the lung bases to the proximal femora. Images are reviewed in the axial, sagittal, and coronal planes. IV contrast was administered without complication. A dose lowering technique was utilized adhering to the principles of ALARA. CT DOSE: 316.38 mGy.cm FINDINGS: Lung bases: The heart is normal in size and without pericardial effusion. The lung bases are clear. Liver: The contrast-enhanced liver is normal in size, contour, and attenuation. There is minimal central intrahepatic biliary ductal dilatation. The hepatic veins and portal veins are patent. Gallbladder: Surgically absent noting clips in the gallbladder fossa. Spleen: Normal in size and attenuation. Pancreas: Unremarkable. Adrenal glands: Unremarkable. Kidneys: The contrast enhanced kidneys are normal in size and without hydronephrosis. The kidneys enhance symmetrically. Scattered subcentimeter cortical hypodensities likely represent cysts but are too small for definitive characterization. Abdominal vasculature: The abdominal aorta is normal in course and caliber noting moderate and age advanced atherosclerotic calcification. Stomach and bowel: Postoperative changes are consistent with a history of Collin-en-Y gastric bypass surgery. No bowel obstruction is seen. The appendix is well-visualized and normal. Peritoneum: There is no intraperitoneal free air or abdominal ascites. There is a small fat-containing umbilical hernia. A naval piercing is noted. Lymphadenopathy: None. Pelvic viscera: The bladder is normal as visualized. The uterus is surgically absent. No adnexal lesion is seen. Skeletal structures: The skeletal structures are osteopenic. No lytic or blastic lesions are seen. IMPRESSION: 1. There are no acute infectious or inflammatory findings in the abdomen or pelvis. 2. Postoperative changes are consistent with a history of Collin-en-Y gastric bypass surgery. No bowel obstruction is seen. Electronically signed by: Remington Victoria M.D. 10/04/2017 10:32 PM Dictated Date/Time: 10/04/2017 10:28 PM
[2017-10-04] MEDS ORDERED: DICY10CA55 PO (23:08)
[2017-10-04] MEDS ORDERED: ONDANSETRON 4MG OD TAB PO STA (23:21)
[2017-10-04 23:49] VITALS: BP 161/91
== END 2017-10-04 23:50 | disposition home or self-care (01) ==
LOC: C.EDB 19:04 → C.EDC 23:50
DX: R10.84 Generalized abdominal pain (principal); Z98.84 Bariatric surgery status; Z79.899 Other long term (current) drug therapy; Z90.710 Acquired absence of both cervix and uterus; F17.210 Nicotine dependence, cigarettes, uncomplicated

== ENCOUNTER → 2017-10-26 | Outpatient (CLI) | payer OTHER ==
[~2017-10-26] MED LIST changes: +DICY10CA55 PO
[2017-10-26 15:39] LABS: BASO % 0.4 %; BASO ABS # 0.02 K/uL (0-0.2); EOS % 0.4 %; EOS ABS # 0.02 K/uL (0-0.5); HEMATOCRIT 49.2 % (37-47); HEMOGLOBIN 17.5 g/dL (12.0-16.0); LYMPH % 28.8 %; LYMPH ABS # 1.34 K/uL (1.2-3.4); MEAN CELL VOLUME 91.6 fL (80-100); MEAN CORPUSCULAR HEMOGLOBIN 32.6 pg (25-34); MEAN CORPUSCULAR HGB CONC 35.6 g/dl (32-36); MEAN PLATELET VOLUME 10.9 fL (7.4-10.4); MONO % 6.7 %; MONO ABS # 0.31 K/uL (0.11-0.59); NEUT % 63.7 %; NEUT ABS # 2.96 K/uL (1.4-6.5); PLATELET COUNT 198 K/uL (130-400); RED CELL DISTRIBUTION WIDTH CV 12.8 % (11.5-14.5); RED CELL DISTRIBUTION WIDTH SD 42.7 fL (36.4-46.3); WHITE BLOOD COUNT 4.65 K/uL (4.8-10.8)
[2017-10-26 16:06] LABS: ALBUMIN 4.3 gm/dl (3.4-5.0); ALT/SGPT 17 U/L (12-78); BLOOD UREA NITROGEN 10 mg/dl (7-18); CALCIUM 9.5 mg/dl (8.5-10.1); CARBON DIOXIDE 23 mmol/L (21-32); GLUCOSE 126 mg/dl (70-99); POTASSIUM 3.7 mmol/L (3.5-5.1); SODIUM 135 mmol/L (136-145)
[2017-10-26 16:09] LABS: ALKALINE PHOSPHATASE 174 U/L (45-117); AST/SGOT 15 U/L (15-37); TOTAL PROTEIN 8.1 gm/dl (6.4-8.2)
--- NOTE | 2017-11-09 10:38 | CODING QUERY NO DIAGNOSIS ---
TREATMENT RENDERED WITHOUT A DIAGNOSIS : 69 To promote full compliance with coding requirements relating to patient care, physician participation is requested in all cases of personnel counselor uncertainty. Please assist us with providing a diagnosis/symptom for the test(s) below: A diagnosis/symptom was not documented on your Order. A valid diagnosis/symptom is required to bill all insurances. Please remember that we are unable to code a diagnosis of rule out, probable, possible, questionable, or suspected. Tests that require a diagnosis: DOS: 10/26/17 * CBC WITH AUTO DIFFER DIAGNOSIS: * VITAMIN B12 DIAGNOSIS: * VITAMIN D, 25-HYDROXY DIAGNOSIS: * COMPREHENSIVE METABO DIAGNOSIS: * IRON DIAGNOSIS: * PARATHYROID HORMONE DIAGNOSIS: * FOLIC ACID, RBC DIAGNOSIS: * VITAMIN B1 DIAGNOSIS: Provider Signature: Date: Thank you Kaila Ackerman Health Information Management Once completed, please kindly fax back to [phone] For questions please call [phone]
== END | disposition home or self-care (01) ==
LOC: C.LAB 15:23
PROVIDERS: ATTEND Surgery
DX: R10.12 Left upper quadrant pain (principal); Z98.84 Bariatric surgery status; Z72.0 Tobacco use; D75.1 Secondary polycythemia